=== PATIENT | female | born 1960 ===

== ENCOUNTER 2018-01-23 13:49 | Emergency (ER) | payer OTHER ==
[~2018-01-23] VITALS: Ht 160 cm; Wt 58.5 kg
[2018-01-23] MEDS ORDERED: SYNTHROID75 MCG PO (14:40)
== END 2018-01-23 16:10 | disposition home or self-care (01) ==
LOC: ER 13:49
DX: S90.02XA Contusion of left ankle, initial encounter (principal); W18.39XA Other fall on same level, initial encounter; Y93.89 Activity, other specified; Y92.89 Other specified places as the place of occurrence of the external cause; Y99.8 Other external cause status